=== PATIENT | female | born 1970 | race Caucasian/White ===

== ENCOUNTER 2021-05-04 12:32 | Outpatient (REF) | payer OTHER, SELFPAY ==
[2021-05-04 15:47] LABS: Vancomycin, Trough 25.1 ug/mL (10.0-20.0)
[2021-05-04 17:25] LABS: CREATININE 0.8 mg/dL (0.55-1.02)
== END 2021-05-04 12:33 | disposition home or self-care (01) ==
LOC: LBN 12:32
PROVIDERS: PCP Internal Medicine; Visit Provider Nurse Practitioner Gerontology
DX: G93.89 Other specified disorders of brain (principal); Z79.2 Long term (current) use of antibiotics; L03.811 Cellulitis of head [any part, except face]
CPT/HCPCS: 80202; 82565

== ENCOUNTER 2021-05-08 11:39 | Outpatient (REF) | payer OTHER, SELFPAY ==
[2021-05-08 13:38] LABS: Abs Immature Grans 0.41 10^3/uL (0.0-0.06); Absolute Basophil Count 0.06 10^3/uL (0.0-0.2); Absolute Eosinophil Count 0.07 10^3/uL (0.0-0.7); Absolute Monocyte Count 0.83 10^3/uL (0.1-0.8); Absolute Neutrophil Count 8.49 10^3/uL (1.2-6.7); Basophils % 0.5; Eosinophils % 0.6; HCT 37.1 % (36.0-46.0); HGB 11.8 g/dL (11.2-15.7); Immature Grans % 3.5; Lymphocytes % 15.7; MCH 29.8 pg (27.0-33.0); MCHC 31.8 % (32.0-36.0); MCV 93.7 fL (80-95); MPV 9.5 fL (8.0-11.0); Monocytes % 7.1; Neutrophils % 72.6; Nucleated RBC 0 %; Platelet Count 181 10^3/uL (130-400); RBC 3.96 10^6/uL (3.93-5.22); RDW 15.1 % (11.7-14.6); RDW-SD 51.9 fL; WBC 11.69 10^3/uL (4.4-10.8)
[2021-05-08 13:39] LABS: Absolute Lymphocyte Count 1.84 10^3/uL (1.2-3.4)
[2021-05-08 14:59] LABS: Anion Gap 9.6 mmol/L (3-11); BUN 22 mg/dL (7-18); CO2 28.4 mmol/L (21.0-32.0); CREATININE 0.8 mg/dL (0.55-1.02); Chloride 105 mmol/L (98-107); Glucose 190 mg/dL (74-106); Potassium 4.5 mmol/L (3.5-5.1); Sodium 143 mmol/L (136-145)
[2021-05-08 15:16] LABS: C-Reactive Protein 1.05 mg/dL (0.0-0.3)
[2021-05-08 15:34] LABS: Vancomycin, Trough 20.9 ug/mL (10.0-20.0)
== END 2021-05-08 11:40 | disposition home or self-care (01) ==
LOC: LBN 11:39
PROVIDERS: PCP Internal Medicine; Visit Provider Nurse Practitioner Gerontology
DX: G06.0 Intracranial abscess and granuloma (principal); G06.2 Extradural and subdural abscess, unspecified; Z79.2 Long term (current) use of antibiotics
CPT/HCPCS: 80048; 80202; 85025; 86140

== ENCOUNTER 2021-05-15 13:56 | Outpatient (REF) | payer OTHER, SELFPAY ==
[2021-05-15 11:56] LABS: Abs Immature Grans 0.25 10^3/uL (0.0-0.06); Absolute Basophil Count 0.04 10^3/uL (0.0-0.2); Absolute Eosinophil Count 0.07 10^3/uL (0.0-0.7); Absolute Lymphocyte Count 2.09 10^3/uL (1.2-3.4); Absolute Monocyte Count 0.63 10^3/uL (0.1-0.8); Absolute Neutrophil Count 4.37 10^3/uL (1.2-6.7); Basophils % 0.5; Eosinophils % 0.9; HCT 35.9 % (36.0-46.0); HGB 11.4 g/dL (11.2-15.7); Immature Grans % 3.4; Lymphocytes % 28.1; MCH 29.3 pg (27.0-33.0); MCHC 31.8 % (32.0-36.0); MCV 92.3 fL (80-95); MPV 9.7 fL (8.0-11.0); Monocytes % 8.5; Neutrophils % 58.6; Nucleated RBC 0 %; Platelet Count 175 10^3/uL (130-400); RBC 3.89 10^6/uL (3.93-5.22); RDW 15.5 % (11.7-14.6); RDW-SD 52.2 fL; WBC 7.45 10^3/uL (4.4-10.8)
[2021-05-15 12:12] LABS: BUN 21 mg/dL (7-18); Estimated GFR 58.45 (mL/min/1.73m2)
[2021-05-15 12:19] LABS: Vancomycin, Trough 21.5 ug/mL (10.0-20.0)
[2021-05-15 13:00] LABS: C-Reactive Protein 0.56 mg/dL (0.0-0.3)
== END 2021-05-15 13:57 | disposition home or self-care (01) ==
LOC: LBN 13:56
PROVIDERS: PCP Internal Medicine; Visit Provider Nurse Practitioner Gerontology
DX: G06.0 Intracranial abscess and granuloma (principal); G06.2 Extradural and subdural abscess, unspecified; Z79.2 Long term (current) use of antibiotics
CPT/HCPCS: 84520; 80202; 82565; 85025; 86140

== ENCOUNTER 2021-05-22 12:34 | Outpatient (REF) | payer OTHER, SELFPAY ==
[2021-05-22 15:34] LABS: Abs Immature Grans 0.27 10^3/uL (0.0-0.06); Absolute Basophil Count 0.04 10^3/uL (0.0-0.2); Absolute Eosinophil Count 0.06 10^3/uL (0.0-0.7); Absolute Lymphocyte Count 1.74 10^3/uL (1.2-3.4); Absolute Monocyte Count 0.66 10^3/uL (0.1-0.8); Absolute Neutrophil Count 5.73 10^3/uL (1.2-6.7); Basophils % 0.5; Eosinophils % 0.7; HCT 39.2 % (36.0-46.0); HGB 12.2 g/dL (11.2-15.7); Immature Grans % 3.2; Lymphocytes % 20.5; MCH 28.8 pg (27.0-33.0); MCHC 31.1 % (32.0-36.0); MCV 92.7 fL (80-95); MPV 9.8 fL (8.0-11.0); Monocytes % 7.8; Neutrophils % 67.3; Nucleated RBC 0 %; Platelet Count 248 10^3/uL (130-400); RBC 4.23 10^6/uL (3.93-5.22); RDW 15.5 % (11.7-14.6); RDW-SD 52.3 fL
[2021-05-22 16:32] LABS: BUN 22 mg/dL (7-18); C-Reactive Protein 1.01 mg/dL (0.0-0.3); CREATININE 1.1 mg/dL (0.55-1.02); Estimated GFR 52.36 (mL/min/1.73m2)
[2021-05-22 18:24] LABS: Vancomycin, Trough 22.4 ug/mL (10.0-20.0)
== END 2021-05-22 12:35 | disposition home or self-care (01) ==
LOC: LBN 12:34
PROVIDERS: PCP Internal Medicine; Visit Provider Nurse Practitioner Gerontology
DX: G06.0 Intracranial abscess and granuloma (principal); G06.2 Extradural and subdural abscess, unspecified; Z79.2 Long term (current) use of antibiotics
CPT/HCPCS: 84520; 80202; 82565; 85025; 86140

== ENCOUNTER 2021-05-26 09:15 | Outpatient (REF) | payer OTHER, SELFPAY ==
[2021-05-26 10:58] LABS: Abs Immature Grans 0.35 10^3/uL (0.0-0.06); Absolute Basophil Count 0.05 10^3/uL (0.0-0.2); Absolute Eosinophil Count 0.03 10^3/uL (0.0-0.7); Absolute Lymphocyte Count 2.03 10^3/uL (1.2-3.4); Absolute Monocyte Count 0.67 10^3/uL (0.1-0.8); Absolute Neutrophil Count 5.13 10^3/uL (1.2-6.7); Basophils % 0.6; Eosinophils % 0.4; HCT 36.9 % (36.0-46.0); HGB 11.7 g/dL (11.2-15.7); Immature Grans % 4.2; Lymphocytes % 24.6; MCHC 31.7 % (32.0-36.0); MCV 91.6 fL (80-95); MPV 9.9 fL (8.0-11.0); Monocytes % 8.1; Neutrophils % 62.1; Nucleated RBC 0 %; Platelet Count 218 10^3/uL (130-400); RBC 4.03 10^6/uL (3.93-5.22); RDW 15.3 % (11.7-14.6); WBC 8.26 10^3/uL (4.4-10.8)
[2021-05-26 11:07] LABS: ALT 81 U/L (14-59); AST 33 U/L (15-37); Alkaline Phosphatase 77 U/L (46-116); Anion Gap 10.2 mmol/L (3-11); BUN 19 mg/dL (7-18); Bilirubin, Total 0.4 mg/dL (0.2-1.0); CO2 27.8 mmol/L (21.0-32.0); CREATININE 1.1 mg/dL (0.55-1.02); Calcium 8.6 mg/dL (8.5-10.1); Chloride 99 mmol/L (98-107); Estimated GFR 52.36 (mL/min/1.73m2); Potassium 4.5 mmol/L (3.5-5.1); Sodium 137 mmol/L (136-145); Total Protein 6.4 g/dL (6.4-8.2); Vancomycin, Trough 18.3 ug/mL (10.0-20.0)
[2021-05-26 11:33] LABS: Glucose 577 mg/dL (74-106)
== END 2021-05-26 09:16 | disposition home or self-care (01) ==
LOC: LBN 09:15
PROVIDERS: PCP Internal Medicine; Visit Provider Nurse Practitioner Gerontology
DX: G06.0 Intracranial abscess and granuloma (principal); G06.2 Extradural and subdural abscess, unspecified; C79.31 Secondary malignant neoplasm of brain; Z79.2 Long term (current) use of antibiotics
CPT/HCPCS: 80053; 80202; 85025

== ENCOUNTER 2021-05-30 10:24 | Outpatient (REF) | payer OTHER, SELFPAY ==
[2021-05-30 11:13] LABS: Abs Immature Grans 0.18 10^3/uL (0.0-0.06); Absolute Basophil Count 0.05 10^3/uL (0.0-0.2); Absolute Eosinophil Count 0.04 10^3/uL (0.0-0.7); Absolute Lymphocyte Count 1.98 10^3/uL (1.2-3.4); Absolute Monocyte Count 0.83 10^3/uL (0.1-0.8); Absolute Neutrophil Count 5.69 10^3/uL (1.2-6.7); Basophils % 0.6; Eosinophils % 0.5; HCT 36.3 % (36.0-46.0); HGB 11.3 g/dL (11.2-15.7); Immature Grans % 2.1; Lymphocytes % 22.6; MCH 28.1 pg (27.0-33.0); MCHC 31.1 % (32.0-36.0); MCV 90.3 fL (80-95); MPV 9.9 fL (8.0-11.0); Monocytes % 9.5; Neutrophils % 64.7; Nucleated RBC 0 %; Platelet Count 188 10^3/uL (130-400); RBC 4.02 10^6/uL (3.93-5.22); RDW 15.1 % (11.7-14.6); RDW-SD 50.2 fL; WBC 8.77 10^3/uL (4.4-10.8)
[2021-05-30 11:23] LABS: BUN 15 mg/dL (7-18); C-Reactive Protein 1.93 mg/dL (0.0-0.3); CREATININE 0.9 mg/dL (0.55-1.02)
== END 2021-05-30 10:25 | disposition home or self-care (01) ==
LOC: LBN 10:24
PROVIDERS: PCP Internal Medicine; Visit Provider Internal Medicine Infectious Disease
DX: G06.0 Intracranial abscess and granuloma (principal); G06.2 Extradural and subdural abscess, unspecified; Z79.2 Long term (current) use of antibiotics
CPT/HCPCS: 84520; 80202; 82565; 85025; 86140